=== PATIENT | male | born 1960 | race Two or more races ===

== ENCOUNTER 2020-08-25 14:22 | Outpatient (CLI) | payer OTHER | END 2020-08-25 14:23 | disposition critical access hospital (66) | LOC: EMS 14:22 | PROVIDERS: ATTEND Surgery | DX: S09.90XA Unspecified injury of head, initial encounter (principal); M54.2 Cervicalgia; R41.0 Disorientation, unspecified; W11.XXXA Fall on and from ladder, initial encounter; Y93.H3 Activity, building and construction; Y92.098 Other place in other non-institutional residence as the place of occurrence of the external cause | CPT/HCPCS: A0425; A0427 ==

== ENCOUNTER 2020-08-25 14:39 | Emergency (ER) | payer OTHER ==
--- NOTE | 2020-08-25 15:06 | ED Physician Documentation ---
History of Present Illness - Stated complaint Stated Complaint: 7FT FALL FROM LADDER - Chief complaint Chief Complaint: Trauma Hd/Nk - History obtained from History obtained from: Patient - Additonal information Additional information: Patient comes emergency department for chief complaint of falling 7 to 8 feet from a ladder. 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 He was able to try to catch himself somewhat but mostly took the fall on his upper back and the back of his head. Patient was initially awake but lost consciousness within seconds for approximately 30 seconds. Patient then awoke and has been without complaints, other than some mild neck pain, since. Medics state that the patient has been stable in route. No other complaints at this time. Review of Systems Ten Systems: 10 systems reviewed and negative Constitutional: reports: Reviewed and negative Eyes: reports: Reviewed and negative Ears: reports: Reviewed and negative Nose: reports: Reviewed and negative Throat: reports: Reviewed and negative Cardiac: reports: Reviewed and negative. denies: Chest pain / pressure Respiratory: reports: Reviewed and negative. denies: Dyspnea GI: reports: Reviewed and negative. denies: Abdominal Pain : reports: Reviewed and negative Skin: reports: Reviewed and negative Musculoskeletal: reports: Neck pain. denies: Back pain Neurologic: reports: Head injury Psychiatric: reports: Reviewed and negative Endocrine: reports: Reviewed and negative Immunocompromised: reports: Reviewed and negative PD PAST MEDICAL HISTORY - Present Medications Home Medications: Ambulatory Orders Medication Instructions Recorded Confirmed No Known Home Medications 08/25/20 08/25/20 - Allergies Allergies/Adverse Reactions: Allergies Allergy/AdvReac Type Severity Reaction Status Date / Time No Known Drug Allergies Allergy Verified 08/25/20 14:54 PD ED PE NORMAL - Vitals Vital signs reviewed: Yes - General General: Alert and oriented X 3, No acute distress, Well developed/nourished - HEENT HEENT: Atraumatic, PERRL, EOMI, Moist mucous membranes - Neck Neck: Supple, no meningeal sign, No bony TTP (No step-off) - Cardiac Cardiac: RRR, No murmur, Strong equal pulses - Respiratory Respiratory: No respiratory distress, Clear bilaterally - Abdomen Abdomen: Soft, Non tender, Non distended - Back Back: No CVA TTP, No spinal TTP - Derm Derm: Normal color, Warm and dry, No rash, Other (Mild abrasion over right thenar eminence.) - Extremities Extremities: No deformity, No tenderness to palpate, Normal ROM s pain, No edema, No calf tenderness / cord - Neuro Neuro: Alert and oriented X 3, genetic counselor 2-12 intact, No motor deficit, No sensory deficit, Normal speech, Other Eye Opening: Spontaneous Motor: Obeys Commands Verbal: Oriented GCS Score: 15 - Psych Psych: Normal mood, Normal affect PD ED PE EXPANDED - Free text exam Free text exam: No tenderness or step-off of any part of the rib cage. Results - Vitals Vitals: Vital Signs - 24 hr 08/25/20 08/25/20 08/25/20 14:41 15:04 15:32 Temperature 36.3 C L Heart Rate 68 56 L 60 Respiratory 18 17 17 Rate Blood Pressure 192/84 H 161/76 H 163/85 H O2 Saturation 100 99 100 08/25/20 08/25/20 08/25/20 16:14 16:30 16:31 Temperature Heart Rate 62 65 67 Respiratory 20 20 22 Rate Blood Pressure 160/81 H 139/83 H O2 Saturation 99 99 99 08/25/20 08/25/20 08/25/20 17:00 17:30 18:21 Temperature Heart Rate 65 69 63 Respiratory 15 26 H Rate Blood Pressure 167/84 H 150/73 H O2 Saturation 100 99 08/25/20 08/25/20 08/25/20 18:30 19:00 19:28 Temperature 36.3 C L 36.4 C L Heart Rate 70 70 72 Respiratory 14 16 16 Rate Blood Pressure 127/67 127/67 146/69 H O2 Saturation 99 97 97 Oxygen O2 Source Room air - Labs Labs: Laboratory Tests 08/25/20 08/25/20 08/25/20 16:29 16:29 16:29 WBC 7.8 RBC 4.73 Hgb 15.8 Hct 46.8 MCV 98.9 H MCH 33.4 H MCHC 33.8 RDW 12.5 Plt Count 194 MPV 9.6 Neut # (Auto) 6.2 Lymph # (Auto) 0.9 L [place] # (Auto) 0.6 Eos # (Auto) 0.1 Baso # (Auto) 0.0 Absolute Nucleated RBC 0.00 Nucleated RBC % 0.0 PT 13.7 H INR 1.2 Sodium 139 Potassium 3.9 Chloride 98 L Carbon Dioxide 24 Anion Gap 17.0 H BUN 16 Creatinine 0.7 Estimated GFR (MDRD) 115 Glucose 95 Calcium 9.1 Total Bilirubin 1.1 H AST 69 H ALT 82 H Alkaline Phosphatase 67 Total Protein 7.6 Albumin 4.4 Globulin 3.2 Albumin/Globulin Ratio 1.4 Lipase 41 Ethyl Alcohol < 5.0 Blood Type Antibody Screen 08/25/20 16:29 WBC RBC Hgb Hct MCV MCH MCHC RDW Plt Count MPV Neut # (Auto) Lymph # (Auto) [place] # (Auto) Eos # (Auto) Baso # (Auto) Absolute Nucleated RBC Nucleated RBC % PT INR Sodium Potassium Chloride Carbon Dioxide Anion Gap BUN Creatinine Estimated GFR (MDRD) Glucose Calcium Total Bilirubin AST ALT Alkaline Phosphatase Total Protein Albumin Globulin Albumin/Globulin Ratio Lipase Ethyl Alcohol Blood Type O POSITIVE Antibody Screen NEGATIVE - Rads (name of study) CT c-spine Radiology: Final report received, EMP read indepedently, See rad report (neg) CT brain Radiology: Final report received, EMP read indepedently, See rad report (Possible small, SAH L medial frontal lobe. No midline shift. ) PD MEDICAL DECISION MAKING - ED course Complexity details: reviewed results, re-evaluated patient, considered d ifferential, d/w patient ED course: The patient arrived in C-spine precautions and on a backboard. He overall, he was alert with a GCS of 15, and very well-appearing. Other than a small abrasion on his hand, no external evidence of trauma was found. Based on the loss of consciousness and the complaint of neck pain, the patient was sent for CTs of the head and neck. The CT C-spine was unremarkable. The CT of the head showed what looks like a small, left frontal subarachnoid hemorrhage on the medial aspect. The patient had remained stable throughout his stay in the emergency department, and without deterioration. I spoke with Dr. Arteaga, the on-call neurosurgeon at [facility], and after reviewing the CT images, he felt that the patient could have a repeat CT at the 4-hour gatito. If the area of hemorrhage was unchanged, the patient could be sent home. Dr. Arteaga did not feel the patient needed to follow-up in neurosurgery clinic, but rather, that he would recover on his own. A mild headache and perhaps some temporary mental "fogginess" were to be expected, he stated. If anything became worse, the patient was to be instructed to report back to the emergency department. Repeat CT scan of the head was ordered. At that time, the patient's GCS was still 15. The patient has been signed out to Dr. Loya at change of shift, pending repeat CT scan. The plan will be that if the findings are unchanged, and the patient has remained stable, he will be discharged home with instructions regarding what neurosurgery has said. Departure - Departure Clinical Impression: Subarachnoid hemorrhage, Fall from height of greater than 3 feet Closed head injury Qualifiers: Encounter type: initial encounter Qualified Code(s): S09.90XA - Unspecified injury of head, initial encounter Condition: Stable Instructions: ED Head Injury Closed Comments: The CT scan of your neck looks good. The CT scan of your head shows a small area of bleeding in your brain. This has been discussed with the on-call neurosurgeon at [facility], who feels that this will heal well without further intervention. You may have headaches and feel a little tired or "off" but this feeling should pass as your brain heals. If you experience severe headache, fainting episodes, severe vomiting, weakness in an arm or leg on one side, visual changes, or seizure-like activity, please return to the emergency department without delay. You may take Tylenol as needed for headache.
--- NOTE | 2020-08-25 15:30 | CT Report ---
PROCEDURE: CERVICAL SPINE WO INDICATIONS: trauma, pain TECHNIQUE: Noncontrast 3 mm thick sections acquired from the skull base to the T4 level. Sagittal and coronal r eformats were then constructed. For radiation dose reduction, the following was used: automated exp osure control, adjustment of mA and/or kV according to patient size. COMPARISON: None. FINDINGS: Image quality: Excellent. Bones: No fractures or dislocations. Visualized superior ribs are intact. Mild cervical spondylosi s, centered at C6-C7, where there is disc height loss, uncovertebral joint hypertrophy bilaterally, a nd bilateral bony foraminal narrowing. Soft tissues: Prevertebral soft tissues are normal in thickness. No paravertebral hematomas. No ap ical pneumothoraces. IMPRESSION: No evidence of acute cervical fracture or dislocation. Reviewed by: Donaldo Grossman MD on 08/25/2020 3:29 PM PST Approved by: Donaldo Grossman MD on 08/25/2020 3:29 PM PST Station ID: [id number]
--- NOTE | 2020-08-25 15:39 | CT Report ---
PROCEDURE: HEAD WO INDICATIONS: trauma, LOC TECHNIQUE: Noncontrast 4.5 mm thick angled axial sections acquired from the foramen magnum to the vertex. For r adiation dose reduction, the following was used: automated exposure control, adjustment of mA and/or kV according to patient size. COMPARISON: None. FINDINGS: Image quality: Excellent. CSF spaces: Basal cisterns are patent. No extra-axial fluid collections. Ventricles are normal in size and shape. Brain: No midline shift. No intracranial masses. Subtle density at the left frontal lobe, (3/21). T his appears to be within the sulci. This is concerning for petechial subarachnoid hemorrhage. Sauer-wh ite matter interface is normal. Skull and face: Calvarium and visualized facial bones are intact, without suspicious lesions. Sinuses: Opacification of the maxillary sinuses and several of the ethmoid air cells. Mastoids are cl ear. IMPRESSION: 1. Subtle increased density at the left frontal lobe is concerning for trace subarachnoid hemorrhage. -This can be further evaluated with follow-up noncontrast head CT in approximately 4 hours. 2. Opacification of the maxillary sinuses and several of the ethmoid air cells. This is most compatib le with marked sinusitis. Results were discussed with Dr. Munoz at time of dictation. Reviewed by: Balta Garcia MD on 08/25/2020 2:38 PM [facility] Approved by: Balta Garcia MD on 08/25/2020 2:38 PM [place] Station ID: [id number]
[2020-08-25 16:38] LABS: BASOPHILS % (AUTO) 0.4 %; EOSINOPHILS # (AUTO) 0.1 10^3/uL (0.0-0.7); EOSINOPHILS % (AUTO) 0.8 %; HGB - HEMOGLOBIN 15.8 g/dL (14.0-18.0); LYMPHOCYTES # (AUTO) 0.9 10^3/uL (1.5-3.5); LYMPHOCYTES % (AUTO) 11.9 %; MEAN CORPUSCULAR HEMOGLOBIN 33.4 pg (27.0-31.0); MEAN CORPUSCULAR HGB CONC 33.8 g/dL (32.0-36.0); MEAN CORPUSCULAR VOLUME 98.9 fL (80.0-94.0); MEAN PLATELET VOLUME 9.6 fL (7.4-11.4); MONOCYTES # (AUTO) 0.6 10^3/uL (0.0-1.0); MONOCYTES % (AUTO) 7.4 %; NEUTROPHILS # (AUTO) 6.2 10^3/uL (1.5-6.6); NEUTROPHILS % (AUTO) 79.2 %; PLT - PLATELET COUNT 194 10^3/uL (130-450); RED BLOOD COUNT 4.73 10^6/uL (4.70-6.10); RED CELL DISTRIBUTION WIDTH 12.5 % (12.0-15.0); WHITE BLOOD COUNT 7.8 x10^3/uL (4.8-10.8)
[2020-08-25 16:53] LABS: ALBUMIN 4.4 g/dL (3.2-5.5); ALBUMIN/GLOBULIN RATIO 1.4 (1.0-2.2); ALKALINE PHOSPHATASE 67 IU/L (42-121); ALT ALANINE AMINOTRANSFERASE 82 IU/L (10-60); AST ASPARTATE AMINOTRANSFERASE 69 IU/L (10-42); BILIRUBIN,TOTAL 1.1 mg/dL (0.2-1.0); BUN - BLOOD UREA NITROGEN 16 mg/dL (6-20); CALCIUM 9.1 mg/dL (8.5-10.3); CARBON DIOXIDE - CO2 24 mmol/L (21-32); CHLORIDE 98 mmol/L (101-111); CREATININE 0.7 mg/dL (0.6-1.2); GLUCOSE 95 mg/dL (70-100); LIPASE 41 U/L (22-51); SODIUM 139 mmol/L (135-145); TOTAL PROTEIN 7.6 g/dL (6.7-8.2)
[2020-08-25 16:55] LABS: INR 1.2 (0.8-1.2); PT - PROTHROMBIN TIME 13.7 secs (9.9-12.6)
--- NOTE | 2020-08-25 19:46 | CT Report ---
PROCEDURE: HEAD WO INDICATIONS: subarachnoid hemorrhage, comparison TECHNIQUE: Noncontrast 4.5 mm thick angled axial sections acquired from the foramen magnum to the vertex. For r adiation dose reduction, the following was used: automated exposure control, adjustment of mA and/or kV according to patient size. COMPARISON: 08/25/2020 CT examination. FINDINGS: Image quality: Excellent. CSF spaces: Basal cisterns are patent. No extra-axial fluid collections. Ventricles are normal in size and shape. Brain: No midline shift. No intracranial masses. The high density focus within the superomedial asp ect of the left frontal lobe is slightly changed in configuration, but appears unchanged in degree. G ray-white matter interface is normal. Skull and face: Calvarium and visualized facial bones are intact, without suspicious lesions. Sinuses: Complete opacification of the visualized maxillary sinuses. Moderate bilateral ethmoid sinus mucosal thickening. IMPRESSION: No significant change in left frontal subarachnoid hemorrhage. Sinus disease. Reviewed by: Siomara Wylie MD on 08/25/2020 7:44 PM PST Approved by: Siomara Wylie MD on 08/25/2020 7:44 PM PST Station ID: [id number]
[2020-08-25 19:54] VITALS: BP 138/68
== END 2020-08-25 20:21 | disposition home or self-care (01) ==
LOC: ED 14:39
DX: S06.6X1A Traumatic subarachnoid hemorrhage with loss of consciousness of 30 minutes or less, initial encounter (principal); S60.511A Abrasion of right hand, initial encounter; W11.XXXA Fall on and from ladder, initial encounter; Y93.H3 Activity, building and construction; Y92.69 Other specified industrial and construction area as the place of occurrence of the external cause; Y99.0 Civilian activity done for income or pay; M47.812 Spondylosis without myelopathy or radiculopathy, cervical region
CPT/HCPCS: 1040M; 36415; 70450; 72125; 80053; 80320; 83690; 85025; 85610; 86850; 86900; 86901; 99284

== ENCOUNTER 2020-09-06 15:33 | Emergency (ER) | payer OTHER ==
--- NOTE | 2020-09-06 16:06 | ED Physician Documentation ---
History of Present Illness - Stated complaint Stated Complaint: DIZZY,PX LEFT SHOULDER/LEG - Chief complaint Chief Complaint: Neuro - Additonal information Additional information: 59-year-old male comes to the emergency department for evaluation of morning dizziness. He was seen in this emergency department on the seventh of this month. He unfortunately sustained a fall from a 7 foot ladder falling directly backwards. He did have loss of consciousness. Subsequent CT imaging did show a subarachnoid hemorrhage. The case was initially discussed with on-call neurosurgery at [facility]. The recommendation was for repeat CT scanning at about 6 hours. If bleed was stable at that time okay for discharge home. Patient reports that the morning after the accident he woke up and felt dizzy. It improved markedly after he gets going. He has no vomiting. He denies that he is dizzy at other times the day or with exertion. He has had no runny nose or drainage from the ears. he denies dizziness at this time. no syncope. no focal neuro deficits. He is also reporting some left shoulder pain especially when he reaches upwards as well as pain in the left hip. Pain is worse after he walks for a long time. He has an unassisted normal gait here in the emergency department. Review of Systems Constitutional: reports: Reviewed and negative Eyes: reports: Reviewed and negative Ears: reports: Reviewed and negative Nose: reports: Reviewed and negative Throat: reports: Reviewed and negative Cardiac: reports: Reviewed and negative Respiratory: reports: Reviewed and negative GI: reports: Reviewed and negative : reports: Reviewed and negative Skin: reports: Reviewed and negative Musculoskeletal: reports: Joint pain (left shoulder, hip) Neurologic: denies: Generalized weakness, Focal weakness, Numbness, Near syncope, Syncope, Seizure, Confused, Altered mental status, Headache, Head injury PD PAST MEDICAL HISTORY - Present Medications Home Medications: Ambulatory Orders Medication Instructions Recorded Confirmed Acetaminophen [Tylenol] 650 mg PO Q6H PRN #30 tab 09/06/20 Doxycycline Hyclate 100 mg PO BID 10 Days #20 tablet. 09/06/20 - Allergies Allergies/Adverse Reactions: Allergies Allergy/AdvReac Type Severity Reaction Status Date / Time No Known Drug Allergies Allergy Verified 09/06/20 15:43 - Social History Does the pt smoke?: Yes Smoking Status: Current every day smoker Does the pt drink ETOH?: Yes Does the pt have substance abuse?: No PD ED PE EXPANDED - General General: Alert, No acute distress, Well developed/nourished - Neck Neck: Supple w/out meningeal sx. No: Adenopathy - Cardiac Cardiac: Regular Rate, Regular Rhythm - Respiratory Respiratory: Clear to ausultation molly. No: Distress, Labored - Abdomen Abdomen: Normal Bowel sounds. No: Tender to palpation - Extremities Extremities: Normal, Left shoulder, Right arm. No: Deformity - Neuro Neuro: Alert and Oriented X 3, CNII-XII intact, Cerebellar nl, Normal gait, Normal finger nose, Normal speech. No: Confused, Disoriented, Nystagmus - GCS Eye Opening: Spontaneous Motor: Obeys Commands Verbal: Oriented Total: 15 Results - Vitals Vitals: Vital Signs - 24 hr 09/06/20 15:39 Temperature 36.3 C L Heart Rate 55 L Respiratory 16 Rate Blood Pressure 173/83 H O2 Saturation 99 Oxygen O2 Source Room air - Rads (name of study) CT head Radiology: Final report received (Interval resolution of previously noted trace left frontal subarachnoid hemorrhage. No new area of intracranial bleed. No midline shift or mass-effect. Bilateral paranasal sinusitis.) left shoulder Radiology: Final report received (No acute fracture or dislocation left shoulder joint osteoarthritis) CXR Radiology: Final report received (No acute cardiopulmonary pathology.) PD MEDICAL DECISION MAKING - ED course Complexity details: reviewed results, re-evaluated patient, considered differential, d/w patient ED course: 59-year-old male return to the emergency department for evaluation of dizziness after a fall about 12 days ago from a ladder of 7 feet. Seen in this ER initially and CT imaging did show a left frontal subarachnoid hemorrhage. Patient reports that he is dizzy only in the mornings when he wakes up. He is not dizzy otherwise throughout the day. Repeat head CT does show a resolved subarachnoid hemorrhage. There is findings of bilateral sphenoid and ethmoid sinusitis. I am not certain that this is contributing to his symptoms but given persistence on CT imaging I will write a prescription for doxycycline. However the morning dizziness is likely an expected sequelae or postconcussive syndrome. He does report left shoulder pain mostly when reaching up. No obvious fracture. X-ray does suggest osteoarthritis. I will recommend the gentleman take Tylenol for pain. Will defer NSAIDs given the acuity of his recent subarachnoid hemorrhage. Patient advised to follow closely with a primary doctor or the [facility]man for follow-up. Departure - Departure Disposition: 01 Home, Self Care Clinical Impression: Dizziness, Left shoulder pain Sinusitis Qualifiers: Sinusitis location: maxillary Chronicity: unspecified Qualified Code(s): J32.0 - Chronic maxillary sinusitis Condition: Stable Record reviewed to determine appropriate education?: Yes Instructions: [facility] Follow-Up: [facility] [Provider Group] Prescriptions: Doxycycline Hyclate 100 mg PO BID 10 Days #20 tablet. Acetaminophen [Tylenol] 650 mg PO Q6H PRN #30 tab PRN Reason: Pain Comments: The CT scan of your head shows that the previously noted subarachnoid hemorrhage or bleed has resolved. The most likely cause of your morning dizziness is simply postconcussion syndrome. The CT does show that you have a sinusitis. This might be contributing to the morning dizziness. I have prescribed doxycycline and antibiotic to help with this. The x-ray of your shoulder does not show anything broken however you do have arthritis in this joint. I have prescribed Tylenol to help with this. Please schedule an appointment with a primary for follow-up. If you do not have a primary Dr. [facility] in [place] is accepting new patients
--- NOTE | 2020-09-06 16:35 | XRAY Report ---
PROCEDURE: Shoulder 2 View LT INDICATIONS: r/o occult fx after fall from ladder 12 days ago TECHNIQUE: 2 views of the shoulder were acquired. COMPARISON: None. FINDINGS: Bones: No fractures or dislocations. Moderate acromioclavicular joint and glenohumeral joint osteoa rthritic changes are seen. No suspicious bony lesions. Visualized ribs appear intact. Soft tissues: No suspicious soft tissue calcifications. IMPRESSION: No acute shoulder fracture or dislocation. Left shoulder joint osteoarthritis. Reviewed by: Srikanth Ragsdale MD on 09/06/2020 4:34 PM PST Approved by: Srikanth Ragsdale MD on 09/06/2020 4:34 PM PST Station ID: [id number]
--- NOTE | 2020-09-06 16:35 | CT Report ---
PROCEDURE: HEAD WO INDICATIONS: recent SAH CONTRAST: None TECHNIQUE: 4.5 mm thick angled axial sections acquired from the foramen magnum to the vertex both before and aft er the administration of intravenous contrast. For radiation dose reduction, the following was used: automated exposure control, adjustment of mA and/or kV according to patient size. COMPARISON: 08/25/2020. FINDINGS: Image quality: Excellent. CSF spaces: Basal cisterns are patent. Previously noted subtle hyperdensity along left frontal lobe sulcus is no longer seen, consistent with resolved subarachnoid hemorrhage. No new extra-axial fluid collections. Ventricles are symmetric in size and shape. Brain: No midline shift. No intracranial bleeds or masses. No abnormal intracranial enhancement. There is cerebral volume loss for age. There is periventricular white matter chronic small vessel is chemic change. There is intracranial internal carotid artery atherosclerosis. Skull and face: Calvarium and visualized facial bones appear intact, without suspicious lesions. Sinuses: Opacification of bilateral maxillary and ethmoid sinuses are again seen. IMPRESSION: 1. Interval resolution of previously noted trace left frontal subarachnoid hemorrhage. No new area of intracranial bleed. 2. No midline shift or mass effect. 3. Bilateral paranasal sinusitis. Reviewed by: Srikanth Ragsdale MD on 09/06/2020 4:33 PM PST Approved by: Srikanth Ragsdale MD on 09/06/2020 4:33 PM PST Station ID: [id number]
--- NOTE | 2020-09-06 16:36 | XRAY Report ---
PROCEDURE: Chest 1 View X-Ray INDICATIONS: Chest Pain TECHNIQUE: One view of the chest was acquired. COMPARISON: None FINDINGS: Surgical changes and devices: None. Lungs and pleura: No pleural effusions or pneumothorax. Lungs are clear. Mediastinum: Mediastinal contours appear normal. Heart size is normal. Bones and chest wall: No suspicious bony lesions. Overlying soft tissues appear unremarkable. IMPRESSION: No acute cardiopulmonary pathology. Reviewed by: Srikanth Ragsdale MD on 09/06/2020 4:34 PM [facility] Approved by: Srikanth Ragsdale MD on 09/06/2020 4:34 PM [facility] Station ID: [id number]
[2020-09-06 17:01] VITALS: BP 148/68
== END 2020-09-06 17:01 | disposition home or self-care (01) ==
LOC: ED 15:33
DX: R42 Dizziness and giddiness (principal); Z87.820 Personal history of traumatic brain injury; J32.0 Chronic maxillary sinusitis; J32.2 Chronic ethmoidal sinusitis; M19.012 Primary osteoarthritis, left shoulder; M25.552 Pain in left hip; F17.200 Nicotine dependence, unspecified, uncomplicated
CPT/HCPCS: 80053; 83690; 84484; 85025; 85610; 99284

== ENCOUNTER 2020-09-08 09:18 | Emergency (ER) | payer OTHER ==
[2020-09-08 09:35] VITALS: BP 153/71
--- NOTE | 2020-09-08 10:26 | ED Physician Documentation ---
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 He has had resolution of his symptoms with the exception of some morning dizziness and he came to the emergency department yesterday was evaluated by the ZAINAB Harding and a CT scan was obtained showing resolution of the subarachnoid hemorrhage and persistence of a sinus infection. He was placed on some doxycycline. He relates that today he is back to the emergency department to get a note to go back to work. He would like to return to work he feels that he can do this and I have indicated to him that I will write the note but I will write the note to include he is not to go over 4 feet high on a ladder.The patient is very accepting of this. Review of Systems Constitutional: denies: Fever Eyes: denies: Decreased vision Ears: denies: Ear pain Nose: denies: Congestion Throat: denies: Sore throat Cardiac: denies: Chest pain / pressure, Palpitations Respiratory: denies: Dyspnea, Cough GI: denies: Abdominal Pain, Nausea, Vomiting : denies: Dysuria, Frequency PD PAST MEDICAL HISTORY - Past Medical History Cardiovascular: Hypertension, High cholesterol Respiratory: None Neuro: None Endocrine/Autoimmune: None GI: GERD : None HEENT: None Musculoskeletal: Fatigue Derm: None - Past Surgical History Past Surgical History: No - Present Medications Home Medications: Ambulatory Orders Medication Instructions Recorded Confirmed Acetaminophen [Tylenol] 650 mg PO Q6H PRN #30 tab 09/06/20 Doxycycline Hyclate 100 mg PO BID 10 Days #20 tablet. 09/06/20 - Allergies Allergies/Adverse Reactions: Allergies Allergy/AdvReac Type Severity Reaction Status Date / Time No Known Drug Allergies Allergy Verified 09/08/20 09:32 - Social History Does the pt smoke?: No Smoking Status: Never smoker Does the pt drink ETOH?: Yes Does the pt have substance abuse?: No - Immunizations Immunizations are current?: Yes PD ED PE NORMAL - Vitals Vital signs reviewed: Yes (hypertensive mild ) - General General: Alert and oriented X 3, No acute distress, Well developed/nourished - HEENT HEENT: Atraumatic, PERRL, EOMI, Ears normal - Neck Neck: Supple, no meningeal sign, No bony TTP - Respiratory Respiratory: No respiratory distress - Extremities Extremities: No deformity, No edema - Neuro Neuro: Alert and oriented X 3, maintainer central office 2-12 intact, No motor deficit, No sensory deficit, Normal speech Eye Opening: Spontaneous Motor: Obeys Commands Verbal: Oriented GCS Score: 15 - Psych Psych: Normal mood, Normal affect Results - Vitals Vitals: Vital Signs - 24 hr 09/08/20 09:28 Temperature 36.3 C L Heart Rate 52 L Respiratory 16 Rate Blood Pressure 153/71 H O2 Saturation 100 Oxygen O2 Source Room air PD MEDICAL DECISION MAKING - ED course Complexity details: considered differential, d/w patient ED course: 59-year-old male with a recent subarachnoid hemorrhage (small and completely resolved now) from a fall will be restricted at work from going higher than 4 feet on a ladder. He appears to be improved on all fronts he has started taking his antibiotic as well. Departure - Departure Disposition: 01 Home, Self Care Clinical Impression: Dizziness Sinusitis Qualifiers: Sinusitis location: maxillary Condition: Stable Instructions: ED Sinusitis Abx Tx Follow-Up: Nasir Bruce MD [Provider Admit Priv/Credential] - Forms: Activity restrictions
== END 2020-09-08 10:43 | disposition home or self-care (01) ==
LOC: ED 09:18
DX: Z02.89 Encounter for other administrative examinations (principal); R42 Dizziness and giddiness; J32.0 Chronic maxillary sinusitis; I10 Essential (primary) hypertension
CPT/HCPCS: 99282; 99283

== ENCOUNTER 2020-10-26 09:23 | Emergency (ER) | payer OTHER ==
--- NOTE | 2020-10-26 11:24 | ED Physician Documentation ---
PD HPI HEADACHE - Stated complaint Stated Complaint: HEAD PX - Chief complaint Chief Complaint: Neuro - History obtained from History obtained from: Patient - History of Present Illness Timing - onset: How many months ago (2) Timing - onset during: Light activity, Exertion Timing - duration: Months (Injury August 27 with the latter approximat una 10 feet backward and struck the back of his head and back. Seen in the ER with CT showing small subarachnoid. Consultation with neurosurgery was to watch it for approximately 4 to 6 hours with repeat scan in the home if no worse.), Other (He had headache and lightheadedness persisting in the subsequent 1 or 2 weeks was seen again in the ER September [address] that was normal. Continued headache and now 1 to 2 weeks of worse headache with ataxia and some right arm numbness. Inhibiting work d/t balance. HODGES worse standing.) Timing - details: Abrupt onset (with initial injury), Still present (worsened the past 1-2 weeks, associated with increased ataxia/balance disorder.) Worst headache ever?: Worst headache ever? (yes) Location: Back Quality: Throbbing, Aching Associated symptoms: Nausea, Numbness (right arm/hand). No: Fever, Stiff neck, Vomiting, Weakness Improved by: Rest Worsened by: Moving, Other (standing and activity) Contributing factors: Trauma (August 27 original, with persistent symptoms. Denies repeat injury.). No: Anticoagulated, Hypertension, Recent illness Recently seen: Emergency Dept (August twice with above findings/treatment.) Review of Systems Constitutional: denies: Fever, Chills Eyes: denies: Loss of vision Nose: denies: Rhinorrhea / runny nose, Congestion Throat: denies: Sore throat Cardiac: denies: Chest pain / pressure Respiratory: denies: Dyspnea, Cough GI: denies: Abdominal Pain, Nausea, Vomiting : denies: Incontinent Neurologic: reports: Numbness (he notes some numbness right arm/hand for 1-2 weeks.), Other (difficulty walking/off balance). denies: Focal weakness, Difficulty speaking PD PAST MEDICAL HISTORY - Past Medical History Past Medical History: Yes Cardiovascular: Hypertension, High cholesterol Respiratory: None Neuro: None, Other Endocrine/Autoimmune: None GI: GERD : None HEENT: None Musculoskeletal: Fatigue Derm: None Other Past Medical History: hemorrhagic cva 09/08 - Past Surgical History Past Surgical History: No - Present Medications Home Medications: Ambulatory Orders Medication Instructions Recorded Confirmed Acetaminophen [Tylenol] 650 mg PO Q6H PRN #30 tab 09/06/20 Doxycycline Hyclate 100 mg PO BID 10 Days #20 tablet. 09/06/20 - Allergies Allergies/Adverse Reactions: Allergies Allergy/AdvReac Type Severity Reaction Status Date / Time No Known Drug Allergies Allergy Verified 10/26/20 09:36 - Living Situation Living Situation: reports: Alone, Other () Living Arrangement: reports: At home - Social History Does the pt smoke?: No Smoking Status: Never smoker Does the pt drink ETOH?: Yes ETOH Use: Other (occasional drinks; denies daily/excessive) Does the pt have substance abuse?: No - Immunizations Immunizations are current?: Yes PD ED PE NORMAL - Vitals Vital signs reviewed: Yes - General General: Alert and oriented X 3, Well developed/nourished, Other (appears somewhat uncomfortable due to headache) - HEENT HEENT: Atraumatic (no tenderness in scalp. ), Moist mucous membranes, Pharynx benign - Neck Neck: Supple, no meningeal sign, No adenopathy, Other (upper neck tender at muscles. No noted deformity. ) - Cardiac Cardiac: RRR, No murmur - Respiratory Respiratory: Clear bilaterally - Abdomen Abdomen: Soft, Non tender, No organomegaly - Back Back: No CVA TTP - Derm Derm: Normal color, Warm and dry - Extremities Extremities: No tenderness to palpate, Normal ROM s pain, No edema, No calf tenderness / cord - Neuro Neuro: Alert and oriented X 3, No motor deficit, Normal speech, Other (Mild ataxia of gait for heel/toe walking. [id number] is okay. Mild numbness to sensation right hand. Normal sld inclusion teacher and movement. ) Eye Opening: Spontaneous Motor: Obeys Commands Verbal: Oriented GCS Score: 15 Results - Vitals Vitals: Vital Signs - 24 hr 10/26/20 10/26/20 10/26/20 09:31 11:05 13:34 Temperature 36.0 C L 36.9 C Heart Rate 61 55 L 53 L Respiratory 16 18 25 H Rate Blood Pressure 158/64 H 179/60 H 161/83 H O2 Saturation 99 100 100 10/26/20 15:14 Temperature Heart Rate 63 Respiratory 27 H Rate Blood Pressure 159/67 H O2 Saturation 98 Oxygen O2 Source Room air - Labs Labs: Laboratory Tests 10/26/20 10/26/20 10/26/20 13:38 13:38 13:38 WBC 6.4 RBC 5.12 Hgb 16.3 Hct 49.3 MCV 96.3 H MCH 31.8 H MCHC 33.1 RDW 11.9 L Plt Count 202 MPV 9.8 Neut # (Auto) 4.7 Lymph # (Auto) 1.2 L Cole # (Auto) 0.3 Eos # (Auto) 0.2 Baso # (Auto) 0.0 Absolute Nucleated RBC 0.00 Nucleated RBC % 0.0 PT 14.0 H INR 1.3 H APTT 30.1 Sodium 135 Potassium 4.0 Chloride 100 L Carbon Dioxide 25 Anion Gap 10.0 BUN 11 Creatinine 0.7 Estimated GFR (MDRD) 115 Glucose 127 H Calcium 9.4 Total Bilirubin 1.1 H AST 26 ALT 29 Alkaline Phosphatase 64 Total Protein 7.9 Albumin 4.6 Globulin 3.3 Albumin/Globulin Ratio 1.4 Lipase 39 Nasal Adenovirus (PCR) Nasal B. parapertussis DNA (PCR) Nasal Coronavir 229E PCR Nasal Coronavir HKU1 PCR Nasal Coronavir NL63 PCR Nasal Coronavir OC43 PCR Nasal Enterovir/Rhinovir PCR Nasal Influenza B PCR Nasal Influenza A PCR Nasal Parainfluen 1 PCR Nasal Parainfluen 2 PCR Nasal Parainfluen 3 PCR Nasal Parainfluen 4 PCR Nasal RSV (PCR) Nasal B.pertussis DNA PCR Nasal C.pneumoniae (PCR) Ronak Human Metapneumo PCR Nasal M.pneumoniae (PCR) Nasal SARS-CoV-2 (PCR) 10/26/20 13:39 WBC RBC Hgb Hct MCV MCH MCHC RDW Plt Count MPV Neut # (Auto) Lymph # (Auto) Cole # (Auto) Eos # (Auto) Baso # (Auto) Absolute Nucleated RBC Nucleated RBC % PT INR APTT Sodium Potassium Chloride Carbon Dioxide Anion Gap BUN Creatinine Estimated GFR (MDRD) Glucose Calcium Total Bilirubin AST ALT Alkaline Phosphatase Total Protein Albumin Globulin Albumin/Globulin Ratio Lipase Nasal Adenovirus (PCR) NOT DETECTED Nasal B. parapertussis DNA (PCR) NOT DETECTED Nasal Coronavir 229E PCR NOT DETECTED Nasal Coronavir HKU1 PCR NOT DETECTED Nasal Coronavir NL63 PCR NOT DETECTED Nasal Coronavir OC43 PCR NOT DETECTED Nasal Enterovir/Rhinovir PCR NOT DETECTED Nasal Influenza B PCR NOT DETECTED Nasal Influenza A PCR NOT DETECTED Nasal Parainfluen 1 PCR NOT DETECTED Nasal Parainfluen 2 PCR NOT DETECTED Nasal Parainfluen 3 PCR NOT DETECTED Nasal Parainfluen 4 PCR NOT DETECTED Nasal RSV (PCR) NOT DETECTED Nasal B.pertussis DNA PCR NOT DETECTED Nasal C.pneumoniae (PCR) NOT DETECTED Ronak Human Metapneumo PCR NOT DETECTED Nasal M.pneumoniae (PCR) NOT DETECTED Nasal SARS-CoV-2 (PCR) NOT DETECTED - Rads (name of study) cervical CT Radiology: Prelim report reviewed (no acute findings/fractures), See rad report head CT Radiology: Prelim report reviewed, Discussed with rads (Acute left subdural Emmanuel with 2.7 cm maximal depth and midline shift of almost 1.5 cm. There is compression of the ventricle. There is small wisps of white coloring fore and aft in the subdural consistent with more recent bleeding as well.), See rad report PD MEDICAL DECISION MAKING - ED course Complexity details: reviewed results, re-evaluated patient, considered differential (Consistent headaches and lightheaded now with some ataxia and worse headache as well. Describes some mild right arm numbness. Even though it is remote from the injury add still feel he has symptoms consistent with subdural and will repeat the CT scan.), d/w patient, d/w furniture sales consultant (Dr. Kellogg, Neurosurgery at [facility], who accepts transfer of the patient, ER-to-ER for prelim evaluation. S/W Dr. Morris, ER physician there as well. ) ED course: Patient kept apprised of his findings. The nurse also discussed with him more fully with translation. He is excepting of the transfer and understands the rationale for likely needing surgery. He is stable for transport. No signs of worsening neurologic status here in the ER. Mild delay for neurosurgery to call back (approximately an hour or so) and then another 2 hours for ambulance transfer. Departure - Departure Disposition: 02 Transfer Acute Care Hosp Clinical Impression: Subacute subdural hematoma, Persistent headaches, Ataxia after head trauma Condition: Stable Record reviewed to determine appropriate education?: Yes
[2020-10-26] MEDS ORDERED: CHERRY SYRUP 10 ML UDC PO ONE (11:43)
[2020-10-26] MEDS ORDERED: IBUPROFEN 600 MG TABLET PO STA (11:43)
[2020-10-26] MEDS ORDERED: DEXAMETHASONE 10 MG/ML VIAL PO STA (11:43)
--- NOTE | 2020-10-26 12:46 | CT Report ---
PROCEDURE: CERVICAL SPINE WO INDICATIONS: persistent/worse neck pain since fall Aug TECHNIQUE: Noncontrast 3 mm thick sections acquired from the skull base to the T4 level. Sagittal and coronal r eformats were then constructed. For radiation dose reduction, the following was used: automated exp osure control, adjustment of mA and/or kV according to patient size. COMPARISON: None. FINDINGS: Image quality: Excellent. Bones: No fractures or dislocations. Visualized superior ribs are intact. Soft tissues: Prevertebral soft tissues are normal in thickness. No paravertebral hematomas. No ap ical pneumothoraces. IMPRESSION: No trauma found. There is a moderate degree of degenerative disc disease at C5-6, with anterior and p osterior projecting osteophytes likely producing a degree of spinal stenosis. No traumatic subluxatio n found. Reviewed by: Gibran Finley MD on 10/26/2020 11:44 AM [place] Approved by: Gibran Finley MD on 10/26/2020 11:44 AM [place] Station ID: [id number]
--- NOTE | 2020-10-26 12:58 | CT Report ---
PROCEDURE: HEAD WO INDICATIONS: persistent headache since fall Aug TECHNIQUE: Noncontrast 4.5 mm thick angled axial sections acquired from the foramen magnum to the vertex. For r adiation dose reduction, the following was used: automated exposure control, adjustment of mA and/or kV according to patient size. COMPARISON: None. FINDINGS: Image quality: Excellent. CSF spaces: Basal cisterns are patent. There is a left hemispheric extra-axial fluid collection comp rised of a predominantly chronic subdural hematoma, which measures up to 12.5 cm AP and 2.0 cm in max imal transverse dimension. At the anterior and posterior aspect of this fluid collection are several higher density collections of material consistent with more recent hemorrhage, subacute, and at the a nterior border of the fluid collection superiorly the density of the small additional area of hemorrh age suggests acute exacerbation. This is seen on series 5 image 12 and the subacute collections are s een posteriorly on series 5 image 18. The mass effect produces deviation of the midline structures from left to right, by 1.1 cm, with a mi ld degree of subfalcine herniation. No ischemic injury is seen. The left lateral ventricle is moderat una compressed and displaced as a result.. Ventricles are normal in size and shape. There is an incidental finding of an ovoid area of low attenuation measuring up to 1 cm in AP dimensi on and approximately 7 mm in transverse dimension of the subcortical white matter at the posterior ri ght parietal region seen centered on series 5 image 20. This is of uncertain etiology and clinical si gnificance. Further assessment of this site by contrast-enhanced MR may be warranted after subdural h ematoma evacuation. Brain: No midline shift. No intracranial masses or hemorrhage. Sauer-white matter interface is norm al. Skull and face: Calvarium and visualized facial bones are intact, without suspicious lesions. Sinuses: Visualized sinuses and mastoids are clear. IMPRESSION: There is a large subdural hematoma with chronic, subacute and a small amount of acute he morrhage within. Overall this measures up to 12.5 cm AP and 2.0 cm transverse with subfalcine herniat ion mild in severity and midline shift from left to right measuring up to 1.1 cm. There is a questionable low-attenuation ovoid focus within the posterior subcortical white matter mahin suring 7 x 10 mm, likely chronic, which could be further assessed utilizing contrast-enhanced MR scan cruz electively after the emergent management of this patient. Findings discussed with the emergency room physician caring for the patient. Neurosurgical consultati on is anticipated. Reviewed by: Gibran Finley MD on 10/26/2020 11:56 AM [facility] Approved by: Gibran Finley MD on 10/26/2020 11:56 AM [facility] Station ID: [id number]
[2020-10-26 13:44] LABS: BASOPHILS % (AUTO) 0.6 %; EOSINOPHILS # (AUTO) 0.2 10^3/uL (0.0-0.7); EOSINOPHILS % (AUTO) 3.1 %; HCT - HEMATOCRIT 49.3 % (42.0-52.0); HGB - HEMOGLOBIN 16.3 g/dL (14.0-18.0); LYMPHOCYTES # (AUTO) 1.2 10^3/uL (1.5-3.5); LYMPHOCYTES % (AUTO) 18.3 %; MEAN CORPUSCULAR HEMOGLOBIN 31.8 pg (27.0-31.0); MEAN CORPUSCULAR HGB CONC 33.1 g/dL (32.0-36.0); MEAN CORPUSCULAR VOLUME 96.3 fL (80.0-94.0); MEAN PLATELET VOLUME 9.8 fL (7.4-11.4); MONOCYTES # (AUTO) 0.3 10^3/uL (0.0-1.0); MONOCYTES % (AUTO) 4.1 %; NEUTROPHILS # (AUTO) 4.7 10^3/uL (1.5-6.6); NEUTROPHILS % (AUTO) 73.7 %; PLT - PLATELET COUNT 202 10^3/uL (130-450); RED BLOOD COUNT 5.12 10^6/uL (4.70-6.10); RED CELL DISTRIBUTION WIDTH 11.9 % (12.0-15.0); WHITE BLOOD COUNT 6.4 x10^3/uL (4.8-10.8)
[2020-10-26 13:52] LABS: INR 1.3 (0.8-1.2)
[2020-10-26 13:57] LABS: ALBUMIN 4.6 g/dL (3.2-5.5); ALBUMIN/GLOBULIN RATIO 1.4 (1.0-2.2); BILIRUBIN,TOTAL 1.1 mg/dL (0.2-1.0); CALCIUM 9.4 mg/dL (8.5-10.3); CREATININE 0.7 mg/dL (0.6-1.2); TOTAL PROTEIN 7.9 g/dL (6.7-8.2)
[2020-10-26 13:59] LABS: PARTIAL THROMBOPLASTIN TIME 30.1 secs (24.9-33.3)
[2020-10-26 14:40] LABS: B. PARAPERTUSSIS- RESP PCR PAN NOT DETECTED; B. PERTUSSIS- RESP PCR PANEL NOT DETECTED; C. PNEUMONIAE- RESP PCR PANEL NOT DETECTED; CORONAVIRUS 229E-RESP PCR NOT DETECTED; CORONAVIRUS HKU1-RESP PCR NOT DETECTED; CORONAVIRUS NL63-RESP PCR NOT DETECTED; CORONAVIRUS OC43-RESP PCR NOT DETECTED; HUMAN METAPNEUMOVIRUS NOT DETECTED; INFLUENZA A- RESP PCR PANEL NOT DETECTED; INFLUENZA B - RESP PCR PANEL NOT DETECTED; M. PNEUMONIAE- RESP PCR PANEL NOT DETECTED; PARAINFLUENZA VIRUS 1 NOT DETECTED; PARAINFLUENZA VIRUS 2 NOT DETECTED; PARAINFLUENZA VIRUS 3 NOT DETECTED; PARAINFLUENZA VIRUS 4 NOT DETECTED; RHINOVIRUS/ENTEROVIRUS NOT DETECTED; RSV- RESP PCR PANEL NOT DETECTED; SARS-CoV-2 -RESP PCR PANEL NOT DETECTED
[2020-10-26 15:15] VITALS: BP 159/67
== END 2020-10-26 16:36 | disposition short-term general hospital (02) ==
LOC: ED 09:23
DX: S06.5X0A Traumatic subdural hemorrhage without loss of consciousness, initial encounter (principal); W11.XXXA Fall on and from ladder, initial encounter; R51.9 Headache, unspecified; R27.0 Ataxia, unspecified; M50.322 Other cervical disc degeneration at C5-C6 level; I10 Essential (primary) hypertension; Z20.822 Contact with and (suspected) exposure to COVID-19
CPT/HCPCS: 0202U; 36415; 70450; 72125; 80053; 83690; 85025; 85610; 85730; 99284; 99285; A9270

== ENCOUNTER 2020-10-26 16:24 | Outpatient (CLI) | payer OTHER | END 2020-10-26 16:25 | disposition short-term general hospital (02) | LOC: EMS 16:24 | PROVIDERS: ATTEND Emergency Medicine | DX: S06.5X9A Traumatic subdural hemorrhage with loss of consciousness of unspecified duration, initial encounter (principal); W11.XXXA Fall on and from ladder, initial encounter; R51.9 Headache, unspecified; R27.0 Ataxia, unspecified | CPT/HCPCS: A0425; A0428 ==

== ENCOUNTER 2021-02-08 15:19 | Outpatient (CLI) | payer OTHER ==
--- NOTE | 2021-02-08 16:23 | CT Report ---
PROCEDURE: HEAD WO INDICATIONS: SUBDURAL HEMATOMA TECHNIQUE: Noncontrast 4.5 mm thick angled axial sections acquired from the foramen magnum to the vertex. For r adiation dose reduction, the following was used: automated exposure control, adjustment of mA and/or kV according to patient size. COMPARISON: 10/26/2020 FINDINGS: Image quality: Excellent. CSF spaces: Basal cisterns are patent. No extra-axial fluid collections. Ventricles are normal in size and shape. Brain: Residual isodense left-sided subdural hematoma measures 5 mm in thickness. No midline shift or parenchymal hemorrhage present. Incidental low-attenuation ovoid focus on the prior exam corresponds with a deep right parietal occipital sulcus. Skull and face: Prior left frontoparietal craniotomy noted secured with 4 straight plates Sinuses: Persistent right-sided maxillary mucosal thickening measures up to 5 mm. IMPRESSION: 1. Subacute to chronic isodense left-sided subdural hematoma deep to the prior craniotomy may reflect residual chronic or subacute subdural hematoma. 2. No mass effect or midline shift. Critical results were discussed with the referring physician's nurse, Dariana at 3:21 PM [place] time 01/18 Reviewed by: Jamel Blount MD on 02/08/2021 3:22 PM [facility] Approved by: Jamel Blount MD on 02/08/2021 3:22 PM [place] Station ID: [id number]
== END 2021-02-08 15:20 | disposition home or self-care (01) ==
LOC: DI 15:19
PROVIDERS: ATTEND Neurological Surgery
DX: S06.5X9A Traumatic subdural hemorrhage with loss of consciousness of unspecified duration, initial encounter (principal)

== ENCOUNTER 2021-02-12 15:28 | Emergency (ER) | payer MEDICAID ==
[2021-02-12 16:27] LABS: BASOPHILS % (AUTO) 0.4 %; EOSINOPHILS # (AUTO) 0.2 10^3/uL (0.0-0.7); EOSINOPHILS % (AUTO) 2.2 %; HCT - HEMATOCRIT 47.6 % (42.0-52.0); HGB - HEMOGLOBIN 15.9 g/dL (14.0-18.0); LYMPHOCYTES # (AUTO) 1.5 10^3/uL (1.5-3.5); LYMPHOCYTES % (AUTO) 13.2 %; MEAN CORPUSCULAR HEMOGLOBIN 30.4 pg (27.0-31.0); MEAN CORPUSCULAR HGB CONC 33.4 g/dL (32.0-36.0); MEAN PLATELET VOLUME 9.8 fL (7.4-11.4); MONOCYTES # (AUTO) 0.6 10^3/uL (0.0-1.0); MONOCYTES % (AUTO) 5.3 %; NEUTROPHILS # (AUTO) 8.6 10^3/uL (1.5-6.6); NEUTROPHILS % (AUTO) 78.6 %; PLT - PLATELET COUNT 195 10^3/uL (130-450); RED BLOOD COUNT 5.23 10^6/uL (4.70-6.10); RED CELL DISTRIBUTION WIDTH 12.4 % (12.0-15.0)
[2021-02-12 16:37] LABS: ALBUMIN 4.5 g/dL (3.2-5.5); ALBUMIN/GLOBULIN RATIO 1.3 (1.0-2.2); CALCIUM 9.3 mg/dL (8.5-10.3); CREATININE 0.8 mg/dL (0.6-1.2); POTASSIUM 3.9 mmol/L (3.5-5.0); TOTAL PROTEIN 8.1 g/dL (6.7-8.2)
[2021-02-12] MEDS ORDERED: ALBUTEROL NEB 2.5 MG/3 ML INH STA (16:47)
[2021-02-12] MEDS ORDERED: BENZONATATE 100 MG CAPSULE PO STA (16:47)
--- NOTE | 2021-02-12 16:49 | ED Physician Documentation ---
PD HPI DYSPNEA - Stated complaint Stated Complaint: COUGH, WEAK, CONGESTION,FEVER - Chief complaint Chief Complaint: Resp - History obtained from History obtained from: Patient, Family - Additional information Additional information: 60-year-old gentleman with recent craniotomy for head injury but otherwise without history of heart or lung disease presents with fever, cough, discomfort with deep breathing since yesterday. No sick contacts. He is immunized against Covid. He denies shortness of breath except when he is coughing. Review of Systems Ten Systems: 10 systems reviewed and negative Constitutional: reports: Fever, Chills Nose: denies: Rhinorrhea / runny nose Throat: reports: Sore throat Cardiac: denies: Chest pain / pressure, Palpitations Respiratory: reports: Cough. denies: Dyspnea PD PAST MEDICAL HISTORY - Past Medical History Cardiovascular: Hypertension, High cholesterol Respiratory: None Neuro: None, Other Endocrine/Autoimmune: None GI: GERD : None HEENT: None Musculoskeletal: Fatigue Derm: None - Past Surgical History Past Surgical History: No - Present Medications Home Medications: Ambulatory Orders Medication Instructions Recorded Confirmed Albuterol Sulf [Ventolin Hfa 1 - 2 puffs INH Q4HR PRN #1 inhaler 02/12/21 Inhaler] Benzonatate [Tessalon] 200 mg PO QID PRN #20 cap 02/12/21 - Allergies Allergies/Adverse Reactions: Allergies Allergy/AdvReac Type Severity Reaction Status Date / Time No Known Drug Allergies Allergy Verified 02/12/21 15:38 - Social History Does the pt smoke?: No Smoking Status: Never smoker Does the pt drink ETOH?: Yes Does the pt have substance abuse?: No - Immunizations Immunizations are current?: Yes PD ED PE NORMAL - Vitals Vital signs reviewed: Yes - General General: Alert and oriented X 3, No acute distress - HEENT HEENT: PERRL, EOMI - Neck Neck: Supple, no meningeal sign, No bony TTP - Cardiac Cardiac: RRR, No murmur - Respiratory Respiratory: No respiratory distress, Other (Wheezy throughout but nonlabored, speaking in full sentences.) - Abdomen Abdomen: Non tender - Back Back: No CVA TTP, No spinal TTP - Derm Derm: Normal color, Warm and dry - Extremities Extremities: No edema, No calf tenderness / cord - Neuro Neuro: Alert and oriented X 3, Normal speech Results - Vitals Vitals: Vital Signs - 24 hr 02/12/21 02/12/21 02/12/21 15:38 16:26 16:56 Temperature 38.3 C H Heart Rate 77 79 75 Respiratory 18 18 19 Rate Blood Pressure 156/111 H 157/81 H 119/63 O2 Saturation 100 94 93 02/12/21 17:10 Temperature Heart Rate 74 Respiratory 16 Rate Blood Pressure O2 Saturation Oxygen O2 Source Room air - Labs Labs: Laboratory Tests 02/12/21 02/12/21 02/12/21 15:56 16:16 16:16 WBC 11.0 H RBC 5.23 Hgb 15.9 Hct 47.6 MCV 91.0 MCH 30.4 MCHC 33.4 RDW 12.4 Plt Count 195 MPV 9.8 Neut # (Auto) 8.6 H Lymph # (Auto) 1.5 Grainger # (Auto) 0.6 Eos # (Auto) 0.2 Baso # (Auto) 0.0 Absolute Nucleated RBC 0.00 Nucleated RBC % 0.0 Sodium 137 Potassium 3.9 Chloride 101 Carbon Dioxide 26 Anion Gap 10.0 BUN 9 Creatinine 0.8 Estimated GFR (MDRD) 99 Glucose 124 H Lactic Acid Calcium 9.3 Total Bilirubin 1.0 AST 23 ALT 30 Alkaline Phosphatase 74 Total Protein 8.1 Albumin 4.5 Globulin 3.6 Albumin/Globulin Ratio 1.3 Nasal Adenovirus (PCR) NOT DETECTED Nasal B. parapertussis DNA (PCR) NOT DETECTED Nasal Coronavir 229E PCR NOT DETECTED Nasal Coronavir HKU1 PCR NOT DETECTED Nasal Coronavir NL63 PCR NOT DETECTED Nasal Coronavir OC43 PCR NOT DETECTED Nasal Enterovir/Rhinovir PCR DETECTED A Nasal Influenza B PCR NOT DETECTED Nasal Influenza A PCR NOT DETECTED Nasal Parainfluen 1 PCR NOT DETECTED Nasal Parainfluen 2 PCR NOT DETECTED Nasal Parainfluen 3 PCR NOT DETECTED Nasal Parainfluen 4 PCR NOT DETECTED Nasal RSV (PCR) NOT DETECTED Nasal B.pertussis DNA PCR NOT DETECTED Nasal C.pneumoniae (PCR) NOT DETECTED Ronak Human Metapneumo PCR NOT DETECTED Nasal M.pneumoniae (PCR) NOT DETECTED Nasal SARS-CoV-2 (PCR) NOT DETECTED 02/12/21 16:16 WBC RBC Hgb Hct MCV MCH MCHC RDW Plt Count MPV Neut # (Auto) Lymph # (Auto) Grainger # (Auto) Eos # (Auto) Baso # (Auto) Absolute Nucleated RBC Nucleated RBC % Sodium Potassium Chloride Carbon Dioxide Anion Gap BUN Creatinine Estimated GFR (MDRD) Glucose Lactic Acid 1.3 Calcium Total Bilirubin AST ALT Alkaline Phosphatase Total Protein Albumin Globulin Albumin/Globulin Ratio Nasal Adenovirus (PCR) Nasal B. parapertussis DNA (PCR) Nasal Coronavir 229E PCR Nasal Coronavir HKU1 PCR Nasal Coronavir NL63 PCR Nasal Coronavir OC43 PCR Nasal Enterovir/Rhinovir PCR Nasal Influenza B PCR Nasal Influenza A PCR Nasal Parainfluen 1 PCR Nasal Parainfluen 2 PCR Nasal Parainfluen 3 PCR Nasal Parainfluen 4 PCR Nasal RSV (PCR) Nasal B.pertussis DNA PCR Nasal C.pneumoniae (PCR) Ronak Human Metapneumo PCR Nasal M.pneumoniae (PCR) Nasal SARS-CoV-2 (PCR) PD MEDICAL DECISION MAKING - ED course ED course: 60-year-old gentleman presents with wheezing, URI symptoms and fever. Chest x- ray negative. Borderline white count at 11. Feeling better after Tessalon and albuterol here. Bio fire panel done to screen for Covid but positive for rhin ovirus which is probably causative. Patient and son counseled. Departure - Departure Disposition: 01 Home, Self Care Clinical Impression: Viral bronchitis Upper respiratory tract infection Qualifiers: URI type: unspecified viral URI Qualified Code(s): J06.9 - Acute upper respiratory infection, unspecified Condition: Good Record reviewed to determine appropriate education?: Yes Instructions: ED Bronchitis Asthmatic, ED Viral Syndrome Prescriptions: Albuterol Sulf [Ventolin Hfa Inhaler] 1 - 2 puffs INH Q4HR PRN #1 inhaler PRN Reason: Shortness Of Air/Wheezing Benzonatate [Tessalon] 200 mg PO QID PRN #20 cap PRN Reason: Cough Comments: Chest x-ray without signs of pneumonia. Blood work relatively unremarkable. Viral swab positive for enterovirus/rhinovirus which is a common cause of viral respiratory infections. Medications for cough and wheezing are provided. Return for new or worsening symptoms. Follow-up with your doctor in 3 to 5 days if not better.
--- NOTE | 2021-02-12 16:49 | XRAY Report ---
PROCEDURE: Chest 1 View X-Ray INDICATIONS: cough fever TECHNIQUE: One view of the chest was acquired. COMPARISON: None FINDINGS: Surgical changes and devices: None. Lungs and pleura: No pleural effusions or pneumothorax. Lungs are clear. Mediastinum: Mediastinal contours appear normal. Heart size is normal. Bones and chest wall: No suspicious bony lesions. Overlying soft tissues appear unremarkable. IMPRESSION: No evidence acute pulmonary process. Reviewed by: Donaldo Grossman MD on 02/12/2021 3:48 PM KAYLA Approved by: Donaldo Grossman MD on 02/12/2021 3:48 PM AKDT Station ID: [id number]
[2021-02-12 16:57] LABS: B. PARAPERTUSSIS- RESP PCR PAN NOT DETECTED; B. PERTUSSIS- RESP PCR PANEL NOT DETECTED; C. PNEUMONIAE- RESP PCR PANEL NOT DETECTED; CORONAVIRUS 229E-RESP PCR NOT DETECTED; CORONAVIRUS HKU1-RESP PCR NOT DETECTED; CORONAVIRUS NL63-RESP PCR NOT DETECTED; CORONAVIRUS OC43-RESP PCR NOT DETECTED; HUMAN METAPNEUMOVIRUS NOT DETECTED; INFLUENZA A- RESP PCR PANEL NOT DETECTED; INFLUENZA B - RESP PCR PANEL NOT DETECTED; M. PNEUMONIAE- RESP PCR PANEL NOT DETECTED; PARAINFLUENZA VIRUS 1 NOT DETECTED; PARAINFLUENZA VIRUS 2 NOT DETECTED; PARAINFLUENZA VIRUS 3 NOT DETECTED; PARAINFLUENZA VIRUS 4 NOT DETECTED; RHINOVIRUS/ENTEROVIRUS DETECTED; RSV- RESP PCR PANEL NOT DETECTED; SARS-CoV-2 -RESP PCR PANEL NOT DETECTED
[2021-02-12] MEDS ORDERED: BENZONATATE 100 MG CAPSULE PO ONE (17:31)
[2021-02-12 17:58] VITALS: BP 140/79
== END 2021-02-12 17:57 | disposition home or self-care (01) ==
LOC: ED 15:28
DX: J20.6 Acute bronchitis due to rhinovirus (principal); J06.9 Acute upper respiratory infection, unspecified; B97.89 Other viral agents as the cause of diseases classified elsewhere; Z20.822 Contact with and (suspected) exposure to COVID-19; I10 Essential (primary) hypertension
CPT/HCPCS: 0202U; 36415; 71045; 80053; 83605; 85025; 87040; 94640; 99283; 99284; A9270